=== PATIENT | male | born 1945 | race Caucasian/White ===

== ENCOUNTER 2016-10-29 08:33 | Day surgery (SDC) | payer MEDICARE ==
[~2016-10-29] VITALS: Ht 180.3 cm; Wt 104.2 kg
[~2016-10-29 08:33] MED LIST: ADVI200C9 PO; ATEN-100 PO; LOSA100T3 PO; PLAV75TA PO; SIMV20 PO; WELL150T PO
[2016-10-29 09:00] VITALS: BP 151/89; PULSE 65; RESP 18; O2SAT 92
[2016-10-29] MEDS ORDERED: SODIUM BICARBONATE 100 MEQ in D5W 1000 ML IV SCH (09:30)
[2016-10-29] MEDS ORDERED: SODIUM CHLORIDE 0.9% FLUSH 5 ML FLUSH IV FLUSH PRN (09:30)
[2016-10-29] MEDS ORDERED: DO NOT GIVE AM GLUCOPHAGE, GLUCOPHAGE XR, GLIPIZIDE, GLYBURIDE OR AVANDAMET XX PRN (09:30)
[2016-10-29] MEDS ORDERED: CLOP75TA PO (09:50)
[2016-10-29] MEDS ORDERED: IBUP200T2 PO (09:50)
[2016-10-29] MEDS ORDERED: BUPR1TAB29 PO (09:50)
[2016-10-29] MEDS ORDERED: HYZA100T6 PO (09:50)
[2016-10-29] MEDS ORDERED: ATEN25TA PO (09:50)
[2016-10-29] MEDS ORDERED: PRAV40TA2 PO (09:50)
[2016-10-29 10:14] LABS: AUTOMATED NEUTROPHIL # 3.9 TH/MM3 (1.8-7.7); BASOPHIL # 0.1 TH/MM3 (0-0.2); BASOPHIL % 0.7 % (0.0-2.0); EOSINOPHIL # 0.6 TH/MM3 (0-0.4); HEMATOCRIT 38.9 % (39.0-51.0); HEMO FLAGS DIFF FINAL; LYMPH % 28.7 % (9.0-44.0); LYMPHOCYTE # 2.2 TH/MM3 (1.0-4.8); MEAN CELL VOLUME 91.4 FL (80.0-100.0); MEAN CORPUSCULAR HEMOGLOBIN 31.5 PG (27.0-34.0); MEAN CORPUSCULAR HGB CONC 34.4 % (32.0-36.0); MONO % 10.9 % (0.0-8.0); NEUT % 51.7 % (16.0-70.0); PLATELET COUNT 183 TH/MM3 (150-450); RED BLOOD COUNT 4.26 MIL/MM3 (4.50-5.90); RED CELL DISTRIBUTION WIDTH 14.3 % (11.6-17.2); WHITE BLOOD COUNT 7.6 TH/MM3 (4.0-11.0)
[2016-10-29 10:29] LABS: BICARBONATE 30.6 MEQ/L (21.0-32.0); POTASSIUM 4.1 MEQ/L (3.5-5.1)
[2016-10-29 11:00] LABS: APTT (PATIENT) 30.4 SEC (24.3-30.1); PROTHROMBIN TIME - PATIENT 10.8 SEC (9.8-11.6)
[2016-10-29] MEDS ORDERED: HEPARIN-NS/PF INJ 500 ML ONE (11:59)
[2016-10-29] MEDS ORDERED: MIDAZOLAM HCL 2 MG/2 ML VIAL ONE (11:59)
[2016-10-29] MEDS ORDERED: IOHEXOL 350 MG/ML 100 ML BTL (for Cath Lab) OTHER ONE (13:00)
[2016-10-29] MEDS ORDERED: HEPARIN SODIUM - IV 10,000 UNITS/10 ML VIAL ONE (13:04)
[2016-10-29] MEDS ORDERED: ATROPINE SULFATE 1 MG/ML VIAL IV PUSH PRN (15:45)
[2016-10-29] MEDS ORDERED: METOCLOPRAMIDE HCL 10 MG/2 ML VIAL IVS PRN (15:45)
[2016-10-29] MEDS ORDERED: ENALAPRILAT 1.25 MG/ML VIAL IV PRN (15:45)
[2016-10-29] MEDS ORDERED: ONDANSETRON HCL 4 MG/2 ML VIAL IV PRN (15:45)
[2016-10-29] MEDS ORDERED: SODIUM CHLOR 0.9% 250 ML IV PRN (15:45)
[2016-10-29] MEDS ORDERED: LORazepam 2 MG/ML VIAL IVP PRN (15:45)
[2016-10-29] MEDS ORDERED: LABETALOL HCL 100 MG/20 ML VIAL IVP PRN (15:45)
[2016-10-29] MEDS ORDERED: POTASSIUM CHLORIDE 20 MEQ CONTROLLED RELEASE TAB PO PRN (15:45)
[2016-10-29] MEDS ORDERED: LIDOCAINE HCL 1% 50 ML VIAL INFIL PRN (15:45)
[2016-10-29] MEDS ORDERED: cloNIDine HCL 0.1 MG TAB PO PRN (15:45)
[2016-10-29] MEDS ORDERED: SODIUM NITROPRUSSIDE 50 MG/250 ML D5W IV SCH ×2 (15:45)
[2016-10-29] MEDS ORDERED: HOLD GLUCOPHAGE, GLUCOPHAGE XR, AND AVANDAMET XX PRN (15:45)
[2016-10-29] MEDS ORDERED: oxyCODONE/ACETAMINOPHEN 5 MG/325 MG TAB PO PRN ×2 (15:45)
--- NOTE | 2016-10-29 16:31 | MA ---
cc: KEMAR ROBINS DATE: 10/29/[address] Kemar Robins, DO PREOPERATIVE DIAGNOSIS Life-style limiting claudication left lower extremity. POSTOPERATIVE DIAGNOSIS Life-style limiting claudication left lower extremity. PROCEDURES 1. Vascular ultrasound access. 2. Aortogram and selective left lower extremity angiogram. 3. IVUS. SURGEON Dr. Kemar Robins. ESTIMATED BLOOD LOSS Minimal. COMPLICATIONS None. DISPOSITION To PACU. PROCEDURE The patient's right groin was prepped and draped in sterile fashion. I got access to the right common femoral artery using duplex ultrasound. I used a 21-gauge needle and exchanged over a wire for a 4-Puerto [place]ican micropuncture catheter in exchange for a 5-Puerto [place]ican sheath over braided wire. I advanced my Omni flush catheter into the abdominal aorta. I shot an AP aortogram. I pulled my catheter and I shot pelvic oblique arteriograms. I then selected out the left external iliac artery and shot a selective left lower extremity arteriogram. After this was done I exchanged for a 6-Puerto Rican 45 cm destination sheath and then advanced a 5-Puerto [place]ican catheter through my sheath into the left SFA and pulled it out from the left SFA and to the left common femoral artery to see if there was any pressure gradient. There was approximately a 20 mm systolic pressure gradient and there was about a 6 mm mean arterial pressure gradient as I moved the catheter back from the proximal left SFA into the common femoral artery. I wanted to look at the characteristics of the lesions in the left SFA and popliteal artery so I used IVUS. I used a 4-Puerto Rican IVUS system after giving 2000 units of heparin and I advanced my IVUS catheter all the way into the popliteal artery which showed that there was a substantial diameter reduction in comparison to the below-knee popliteal artery more than 50% across sectional area reduction of gradient of 75%. The same were true for the left SFA lesion, the two SFA lesions in series to the area of normal SFA. The patient had the IVUS catheter removed, at the end of the case, we removed the sheath back and applied pressure to the right groin after shooting arteriogram of the right groin. The patient tolerated the procedure well. FINDINGS My findings were that the abdominal aorta was widely patent. The bilateral common, internal and external iliac arteries were widely patent. The right common femoral profunda and superficial femoral arteries were patent. The right profunda femoral artery at its origin had a stenosis. This appeared to be mild to moderate in nature. The left common, internal and external iliac arteries were widely patent. The left common femoral and profunda femoral arteries appeared to be patent. There was extensive calcification at the origin of the SFA. There was also a separate area of calcification in the proximal SFA approximately 8 centimeters from the origin. ___ calcification seen also on the left common femoral artery as well. The rest of the left SFA appeared to be patent, minimal to moderate disease especially in the area of Orlando's canal. The left popliteal artery at the knee had a high-grade stenosis. The left below-knee popliteal artery appeared to be widely patent. The patient had three-vessel runoff through the anterior tib, peroneal and posterior tibial arteries. There was a high-grade stenosis at the takeoff of the anterior tibial artery and it should be noted there was a delay in flow distally between the anterior tibial artery and the posterior tibial artery. There was some mild disease of the takeoff of the left posterior tibial artery. The patient had a medial and lateral plantar artery and a dorsalis pedis artery in the foot. The lateral plantar artery appeared to be fairly diseased. My findings and conclusion were that the patient had two proximal flow-limiting lesions of the proximal SFA, and at least mild to moderate disease of the SFA at the area of Orlando's canal with a high-grade stenosis of the left popliteal artery with three-vessel runoff with a high-grade stenosis of the left anterior tibial artery. DO HANNAH Dunne /1:53 PM /4:10 PM
[2016-10-29] MEDS ORDERED: SODIUM CHLORIDE 0.9% FLUSH 5 ML FLUSH IV FLUSH SCH (21:00)
[2016-10-30] MEDS ORDERED: ASPIRIN EC 81 MG TABEC PO SCH (09:00)
== END 2016-10-29 19:45 | disposition home or self-care (01) ==
LOC: HDOC 08:33 → HDIC 08:34 → HDOC 19:45
PROVIDERS: ATTEND Surgery
DX: I70.212 Atherosclerosis of native arteries of extremities with intermittent claudication, left leg (principal); I10 Essential (primary) hypertension; Z95.0 Presence of cardiac pacemaker
CPT/HCPCS: 36247; 75625; 75710; 80048; 85025; 85610; 85730; C1753; C1769; C1893; J1644; J2250; J3010; J7070; Q9967

== ENCOUNTER 2016-11-05 12:08 | Inpatient (IN) | payer MEDICARE ==
[~2016-11-05] VITALS: Ht 180.3 cm; Wt 101.8 kg
[~2016-11-05 12:08] MED LIST changes: -ADVI200C9 PO; -ATEN-100 PO; +ATEN25TA PO; +BUPR1TAB29 PO; +CLOP75TA PO; +HYZA100T6 PO; -LOSA100T3 PO; -PLAV75TA PO; +PRAV40TA2 PO; -SIMV20 PO; -WELL150T PO
[2016-11-09] MEDS ORDERED: COMPTAB PO (11:18)
[2016-11-09] MEDS ORDERED: IBUP400T20 PO (11:18)
[2016-11-09] MEDS ORDERED: [UNRECOGNIZED DRUG - CODE] PO (11:18)
[2016-11-16] VITALS (7 sets, daily range): BP systolic 142–161; BP diastolic 75–88; PULSE 65–78; RESP 16–17; TEMP 97.9–98.3; O2SAT 96–98
[2016-11-16] MEDS ORDERED: SODIUM CHLORID 0.9% 500 ML IV SCH (08:00)
[2016-11-16] MEDS ORDERED: INSULIN HUMAN REGULAR 1,000 UNITS/10 ML VIAL SQ PRN (08:30)
[2016-11-16] MEDS ORDERED: METOPROLOL TARTRATE 25 MG TAB PO PRN (08:30)
[2016-11-16] MEDS ORDERED: MORPHINE SULFATE 4 MG/ML INJ IV PUSH PRN (10:00)
[2016-11-16] MEDS ORDERED: ceFAZolin 2 GM PREMIX 50 ML IV SCH (10:00)
[2016-11-16] MEDS ORDERED: DEXTROSE 50% IN WATER 50 ML VIAL(D50) IV PUSH PRN (10:00)
[2016-11-16] MEDS ORDERED: Post-op Orders (for Pharmacy) MISC OTHER ONE (10:00)
[2016-11-16] MEDS ORDERED: MAGNESIUM HYDROXIDE SUSP 30 ML CUP PO PRN (10:00)
[2016-11-16] MEDS ORDERED: GLUCAGON 1 MG/ML VIAL OTHER PRN (10:00)
[2016-11-16] MEDS ORDERED: THROMBIN (TOPICAL) 5,000 UNIT VIAL ONE (10:08)
[2016-11-16] MEDS ORDERED: HEPARIN SODIUM - SQ 10,000 UNITS/ML VIAL ONE (10:09)
[2016-11-16] MEDS ORDERED: FAMOTIDINE 20 MG/2 ML VIAL ONE (10:16)
[2016-11-16] MEDS ORDERED: DEXAMETHASONE SOD PHOS 4 MG/ML VIAL ONE (10:16)
[2016-11-16] MEDS ORDERED: ACETAMINOPHEN 1000 MG/100 ML VIAL IV ONE (10:24)
--- NOTE | 2016-11-16 10:51 | PD.VS.PN ---
Pre-operative Note Pre-operative diagnosis: life style limiting claudication. Planned procedure: left femoral endarterectomy Labs: Laboratory Tests Test 11/16/16 08:44 Blood Type O POSITIVE Antibody Screen NEGATIVE Crossmatch Leukocyte-Reduced Red Blood Cells Blood Bank Comment Post-operative destination: [facility] Operative site marked: Yes Consent: Informed consent has been obtained from Navid Singleton. I have explained the procedure in detail and discussed the risks, benefits, and potential complications. All questions have been answered. Kemar Estrada DO Nov 16, 2016 10:51
[2016-11-16] MEDS ORDERED: BUPIVACAINE/EPINEPHRINE 0.25% PF 30 ML VIAL ONE (10:53)
[2016-11-16] MEDS: HEPARIN SODIUM - IV 10,000 UNITS/10 ML VIAL ONE ×2 (11:46→13:10)
[2016-11-16] MEDS ORDERED: PROPOFOL 200 MG/20 ML AMP IV ONE (12:00)
[2016-11-16] MEDS: INSULIN NovoLIN REGULAR SUPPLEMENTAL SCALE SQ SCH ×3 (12:00→23:41)
[2016-11-16] MEDS ORDERED: NORMOSOL R INJ 2,000 ML IV ONE (12:00)
[2016-11-16] MEDS ORDERED: PHENYLEPH/NS 1000 MCG/10 ML SYR IV ONE (12:00)
[2016-11-16] MEDS ORDERED: LACTATED RINGER'S 1000 ML INJ 1,000 ML IV ONE (12:00)
[2016-11-16] MEDS ORDERED: DO NOT ADM ANY ANTICOAGULANT DRUGS XX PRN (15:17)
[2016-11-16] MEDS ORDERED: fentaNYL CITRATE 250 MCG/5 ML AMP ONE (15:32)
--- NOTE | 2016-11-16 15:38 | MP ---
cc: MARK ROBINS DATE OF SURGERY: 11/16/2016 PREOPERATIVE DIAGNOSIS Lifestyle limiting claudication. POSTOPERATIVE DIAGNOSIS Lifestyle limiting claudication. PROCEDURE Left femoral endarterectomy with bovine patch. SURGEON Sean BRANCHER Brad IV FLUIDS 3.3 liters crystalloid. ESTIMATED BLOOD LOSS 450 cc. URINE OUTPUT No urine output through catheter. COMPLICATIONS None. DISPOSITION To PACU. DETAILS OF PROCEDURE The patient's left groin was prepped and draped in the sterile fashion. I did prep him from the xiphoid process to the toes bilaterally. We did give him perioperative IV antibiotics. The patient had a condom catheter placed before the procedure. His urethra was not cannulated because he had a previous urological procedure which was a contraindication to cannulation with a Hagan. An incision was made over the left groin in the medial third vertically from just above the inguinal ligament inferiorly. I used a scalpel and electrocautery. I dissected down with Metzenbaum scissors, isolated out the common, profunda and superficial femoral arteries. I removed any periadventitial tissue with sharp dissection. I used 2-0 ties and vessel loops for control of the common, profunda and superficial femoral artery and then side branches of the profunda and common as needed. We heparinized the patient to an ACT of approximately 280. We used pediatric profunda clamps to control the SFA, common femoral and profunda femoral arteries. I made an arteriotomy with an 11 blade and Philip scissors. After I performed my arteriotomy I opened up the vessel and used a Hatteras elevator to remove any plaque off the back wall of the vessel. I irrigated the back wall of the vessel. It should be noted that my incision extended from the common femoral into the proximal SFA. Once I felt like the area was clear as well as the profunda femoral artery of any debris, I sewed on a 9 x 2 bovine patch. It should be noted that the patch was longitudinally divided so was approximately 1.5 cm in diameter. I sewed it in with a 5-0 and BV-1. At the end of the procedure I back bled and forward blood to remove any additional debris. It should be noted there was a good signal distally and there was no surgical repair sutures needed. I then made a second counterincision inferiorly, used a scalpel and electrocautery and dissected out through the subcutaneous tissue to the more distal superficial femoral artery. I performed a second endarterectomy using two pediatric profunda clamps proximally and distally with an 11 blade and Philip as well as a Hatteras elevator to remove the plaque. I then used a second 9 x 2 cm patch. It should be noted that these three areas were high-grade stenoses with friable plaque. At the end of the procedure there were excellent signals in the dorsalis pedis and posterior tibial. For the second patch I had to use approximately three 6-0 Prolene in order to control bleeding. I did use Surgicel to help out with hemostasis. I closed in layers with interrupted 2-0 and 3-0 Vicryl absorbable sutures and two 4-0 Monocryl with a Prevena VAC over this for the skin. The patient tolerated the procedure well. DO KAMERON Dunne /2:36 PM /3:12 PM
[2016-11-16] MEDS: SODIUM CHLOR 0.9% 1000 ML INJ 1,000 ML IV SCH (16:15)
--- NOTE | 2016-11-16 16:24 | HHI.PR ---
Immediate Post Op Note Procedure Date: Nov 16, 2016 Pre Op Diagnosis: (1) Claudication in peripheral vascular disease Post Op Diagnosis: (1) Claudication in peripheral vascular disease Surgeon: Kemar Estrada Medical Lab Specialist(s): Brad Valdes Procedure: Left femoral endarterectomy Findings: Calcified plaque. Additional Information: NA Complications: None Specimen(s) removed: Plaque Estimated blood loss: 450cc Anesthesia: General, Local Drains: None Fluids: 2300 cc IVF Tourniquet time (min at mmHg) NA Patient to: PACU Patient Condition: Good Implant/Devices: Other Date/Time of Procedure: Other Kemar Estrada DO Nov 16, 2016 16:24
[2016-11-16] MEDS: ceFAZolin 2 GM PREMIX 50 ML IV SCH (20:19)
[2016-11-16] MEDS: DOCUSATE CALCIUM 240 MG CAP PO SCH (21:07)
[2016-11-16] MEDS: ACETAMINOPHEN 325 MG TAB PO PRN (23:28)
[2016-11-17] VITALS (26 sets, daily range): BP systolic 131–159; BP diastolic 63–77; PULSE 64–91; RESP 16–20; TEMP 98.1–98.7; O2SAT 94–98
[2016-11-17] MEDS: SODIUM CHLOR 0.9% 1000 ML INJ 1,000 ML IV SCH ×2 (03:26→05:50)
[2016-11-17] MEDS: ceFAZolin 2 GM PREMIX 50 ML IV SCH ×2 (03:36→11:53)
[2016-11-17] MEDS: ACETAMINOPHEN 325 MG TAB PO PRN (04:16)
[2016-11-17 05:31] LABS: ALKALINE PHOSPHATASE 59 U/L (45-117); ALT (GPT) 38 U/L (12-78); ANION GAP 7 MEQ/L (5-15); AST (GOT) 19 U/L (15-37); BICARBONATE 28.8 MEQ/L (21.0-32.0); BLOOD UREA NITROGEN 8 MG/DL (7-18); CHLORIDE 104 MEQ/L (98-107); GLOMERULAR FILTRATION RATE 86 ML/MIN (>89); POTASSIUM 3.8 MEQ/L (3.5-5.1); SODIUM (NA) 140 MEQ/L (136-145); TOTAL BILIRUBIN ADULT 0.3 MG/DL (0.2-1.0)
[2016-11-17] MEDS: INSULIN NovoLIN REGULAR SUPPLEMENTAL SCALE SQ SCH ×4 (06:00→23:58)
[2016-11-17] MEDS: LACTATED RINGER'S 1000 ML IV SCH (08:00)
[2016-11-17] MEDS: ASPIRIN EC 325 MG TABEC PO SCH (08:42)
--- NOTE | 2016-11-17 09:39 | PD.VS.PN ---
Objective Vitals/I&O Date Time Temp Pulse Resp B/P Pulse Ox O2 Delivery O2 Flow Rate FiO2 11/17/16 08:00 75 11/17/16 07:27 97 21 11/17/16 07:00 65 11/17/16 07:00 98.7 78 20 157/74 95 11/17/16 06:00 65 11/17/16 05:00 64 11/17/16 04:00 66 11/17/16 03:30 98.1 65 16 131/63 96 11/17/16 03:00 65 11/17/16 02:00 66 11/17/16 01:00 70 11/17/16 00:00 98.3 77 16 141/70 96 11/17/16 00:00 77 11/16/16 23:00 76 11/16/16 22:00 68 11/16/16 21:00 73 11/16/16 20:00 72 11/16/16 20:00 98.3 70 16 142/75 97 11/16/16 19:00 78 11/16/16 17:38 97.9 65 17 161/80 96 11/16/16 16:30 98.5 64 15 147/87 99 Room Air 11/16/16 16:15 70 15 150/95 99 Nasal Cannula 3 11/16/16 16:00 76 16 141/81 99 Nasal Cannula 3 11/16/16 15:45 64 15 155/94 99 Nasal Cannula 3 11/16/16 15:30 64 15 155/98 99 Nasal Cannula 3 11/16/16 15:20 98.4 64 15 161/94 98 Nasal Cannula 3 Physical Exam left foot warm with triphasic pedal signals. Laboratory Laboratory Tests Test 11/17/16 04:36 Sodium Level 140 Potassium Level 3.8 Chloride Level 104 Carbon Dioxide Level 28.8 Anion Gap 7 Blood Urea Nitrogen 8 Creatinine 0.88 Estimat Glomerular Filtration 86 Rate Random Glucose 111 Calcium Level 8.5 Total Bilirubin 0.3 Aspartate Amino Transf 19 (AST/SGOT) Alanine Aminotransferase 38 (ALT/SGPT) Alkaline Phosphatase 59 Total Protein 6.3 Albumin 3.0 Assessment and Plan Assessment: (1) Claudication in peripheral vascular disease Status: Acute Plan Hx of PAD status post left fem endarterectomy. Patient without complaints. Plan for OOB to chair today. Diet advanced and home meds started. Kemar Estrada DO Nov 17, 2016 09:39
[2016-11-17] MEDS: DOCUSATE CALCIUM 240 MG CAP PO SCH (20:59)
[2016-11-17] MEDS: IBUPROFEN 400 MG TAB PO SCH (20:59)
[2016-11-18] VITALS (26 sets, daily range): BP systolic 134–160; BP diastolic 58–72; PULSE 68–90; RESP 15–20; TEMP 98.5–100.2; O2SAT 94–97
[2016-11-18] MEDS: INSULIN NovoLIN REGULAR SUPPLEMENTAL SCALE SQ SCH ×3 (06:00→17:58)
[2016-11-18] MEDS: LACTATED RINGER'S 1000 ML IV SCH (07:45)
[2016-11-18] MEDS ORDERED: NON-FORMULARY DRUG (Losartan-Hydrochlorothiazide (Hyzaar) 1 TAB) PO SCH (09:00)
[2016-11-18] MEDS: IBUPROFEN 400 MG TAB PO SCH ×2 (09:00→21:12)
[2016-11-18] MEDS: MULTIVITAMIN HEMATINIC THERAPEUTIC TAB PO SCH (09:40)
[2016-11-18] MEDS: ATENOLOL 25 MG TAB PO SCH (09:40)
[2016-11-18] MEDS: buPROPion HCL 150 MG SUSTAINED RELEASE TAB PO SCH (09:40)
[2016-11-18] MEDS: PRAVASTATIN SOD 40 MG TAB PO SCH (09:41)
[2016-11-18] MEDS: HYDROCHLOROTHIAZIDE 12.5 MG CAP PO SCH (09:41)
[2016-11-18] MEDS: CLOPIDOGREL 75 MG TAB PO SCH (09:42)
[2016-11-18] MEDS: LACTOBACILLUS ACIDOPHILUS TAB PO SCH (09:42)
[2016-11-18] MEDS: ASPIRIN EC 325 MG TABEC PO SCH (09:42)
[2016-11-18] MEDS: LOSARTAN 50 MG TAB PO SCH (09:42)
--- NOTE | 2016-11-18 17:32 | PD.VS.PN ---
Subjective Subjective/Hospital Course ambulating with minimal pain, zamzam po and urinating. Objective Vitals/I&O Date Time Temp Pulse Resp B/P Pulse Ox O2 Delivery O2 Flow Rate FiO2 11/18/16 17:00 79 11/18/16 16:00 78 11/18/16 15:51 98.8 79 16 138/58 97 11/18/16 15:00 79 11/18/16 14:00 78 11/18/16 13:00 78 11/18/16 12:00 98.9 79 16 160/72 97 11/18/16 12:00 75 11/18/16 11:00 73 11/18/16 10:00 74 11/18/16 09:00 78 11/18/16 08:00 78 11/18/16 08:00 99.0 79 16 146/67 97 11/18/16 07:00 78 11/18/16 06:00 78 11/18/16 05:00 68 11/18/16 04:00 98.5 79 16 134/60 97 11/18/16 04:00 79 11/18/16 03:00 77 11/18/16 02:00 90 11/18/16 01:00 72 11/18/16 00:00 98.8 75 16 148/70 94 11/18/16 00:00 75 11/17/16 23:00 85 11/17/16 22:00 74 11/17/16 21:00 80 11/17/16 20:00 79 11/17/16 20:00 98.7 77 16 144/69 94 11/17/16 19:00 79 11/17/16 18:00 87 11/18/16 11/18/16 11/18/16 07:00 15:00 23:00 Intake Total 240 ml 720 ml Output Total 1350 ml 1725 ml Balance -1110 ml -1005 ml Physical Exam left gr dressing in place. left foot warm with triphasic signals. Assessment and Plan Assessment: (1) Claudication in peripheral vascular disease Status: Acute Plan Hx of PAD status post left fem endarterectomy. Patient without complaints. Plan for discharge 11/19 if continues to progress. Kemar Estrada DO Nov 18, 2016 17:32 Kemar Estrada DO Nov 18, 2016 17:32
[2016-11-18] MEDS: DOCUSATE CALCIUM 240 MG CAP PO SCH (21:00)
[2016-11-19] VITALS (11 sets, daily range): BP systolic 116–179; BP diastolic 54–79; PULSE 64–78; RESP 20; TEMP 98.2–98.8; O2SAT 96
[2016-11-19] MEDS: INSULIN NovoLIN REGULAR SUPPLEMENTAL SCALE SQ SCH ×2 (00:46→07:00)
[2016-11-19] MEDS: LACTATED RINGER'S 1000 ML IV SCH (07:49)
[2016-11-19] MEDS: IBUPROFEN 400 MG TAB PO SCH (09:00)
[2016-11-19] MEDS: buPROPion HCL 150 MG SUSTAINED RELEASE TAB PO SCH (09:00)
[2016-11-19] MEDS: ASPIRIN EC 325 MG TABEC PO SCH (09:41)
[2016-11-19] MEDS: MULTIVITAMIN HEMATINIC THERAPEUTIC TAB PO SCH (09:41)
[2016-11-19] MEDS: PRAVASTATIN SOD 40 MG TAB PO SCH (09:41)
[2016-11-19] MEDS: LACTOBACILLUS ACIDOPHILUS TAB PO SCH (09:42)
[2016-11-19] MEDS: HYDROCHLOROTHIAZIDE 12.5 MG CAP PO SCH (09:42)
[2016-11-19] MEDS: ATENOLOL 25 MG TAB PO SCH (09:42)
[2016-11-19] MEDS: LOSARTAN 50 MG TAB PO SCH (09:43)
[2016-11-19] MEDS: CLOPIDOGREL 75 MG TAB PO SCH (09:43)
--- NOTE | 2016-11-19 10:51 | PD.VS.DC ---
Discharge Summary Admission Date: Nov 16, 2016 at 07:33 Discharge Date: Nov 19, 2016 Admission Diagnosis: (1) Claudication in peripheral vascular disease Discharge Diagnosis: (1) Claudication in peripheral vascular disease Status: Acute (2) PAD (peripheral artery disease) Status: Chronic Brief History from admission Pt has a HX of life style limiting claudication, PAD Left femoral endarterectomy was done on 11/16/16 Procedure(s): Left femoral endarterectomy was done on 11/16/16 Significant Findings GENERAL: A&OX3, GCS15, NAD SKIN: Warm and dry. Provena wound vac removed, Incision intact to left groin region with no redness, swelling or drainage. NECK: Supple, trachea midline. No JVD or lymphadenopathy. CARDIOVASCULAR: + S1,S2 RESPIRATORY: Breath sounds equal bilaterally. No accessory muscle use. GASTROINTESTINAL: Abdomen soft, non-tender, nondistended. MUSCULOSKELETAL: No cyanosis, or edema. Bilat PT/DP pulses heard with strong triphasic signals Laboratory Tests Test 11/17/16 04:36 Estimat Glomerular Filtration 86 ML/MIN (>89) Rate Random Glucose 111 MG/DL (74-106) Total Protein 6.3 GM/DL (6.4-8.2) Albumin 3.0 GM/DL (3.4-5.0) Hospital Course: Pt has a HX of life style limiting claudication, PAD Left femoral endarterectomy was done on 11/16/16 Pt has done well post, has ambulated without difficulty since procedure Pt appears well and has no complaints Will F/U in our OPC on 11/25/16 at 1015 Allergies Coded Allergies Type Severity Reaction Last Updated Verified No Known Allergies 11/16/16 Yes 11/17///////// 06:00 18:00 06:00 18:00 06:00 18:00 Intake Total 1586 ml 1490 ml 240 ml 720 ml 480 ml Output Total 1950 ml 1300 ml 1350 ml 1725 ml 4 ml Balance -364 ml 190 ml -1110 ml -1005 ml 476 ml Intake Oral 720 ml 1440 ml 240 ml 720 ml 480 ml IV Total 866 ml 50 ml Output Urine Total 1950 ml 1300 ml 1350 ml 1725 ml 4 ml # Bowel Movements 0 1 0 1 1 Laboratory Tests Test 11/17/16 04:36 Sodium Level 140 MEQ/L Potassium Level 3.8 MEQ/L Chloride Level 104 MEQ/L Carbon Dioxide Level 28.8 MEQ/L Anion Gap 7 MEQ/L Blood Urea Nitrogen 8 MG/DL Creatinine 0.88 MG/DL Estimat Glomerular Filtration 86 ML/MIN Rate Random Glucose 111 MG/DL Calcium Level 8.5 MG/DL Total Bilirubin 0.3 MG/DL Aspartate Amino Transf 19 U/L (AST/SGOT) Alanine Aminotransferase 38 U/L (ALT/SGPT) Alkaline Phosphatase 59 U/L Total Protein 6.3 GM/DL Albumin 3.0 GM/DL Procedure Category Date Status Time Bupivacaine-Epi Pf MED 11/16/16 Complete 0.25% Inj (Marcaine-E 10:53 Am Admit Pre Op Care [facility] 11/16/16 Complete Cefazolin 2 Gm Premix MED 11/16/16 Complete (Ancef 2 Gm Premix 20:00 Fentanyl Inj MED 11/16/16 Complete (Fentanyl Inj) 15:32 [facility] 11/16/16 Complete Information 15:17 Diet Clear Liquid DIET 11/16/16 Complete Dinner Diet Heart Healthy DIET 11/17/16 Transmitted Breakfast Class Iv Pacu Ea 30 [facility] 11/16/16 Complete MIN General/Pacu [facility] 11/16/16 Complete Post Anesthesia Oxygen [facility] 11/16/16 Complete Bedside Glucose [facility] 11/16/16 Complete Atenolol (Tenormin) MED 11/18/16 In Process 09:00 Bupropion Sr MED 11/18/16 In Process (Wellbutrin Sr) 09:00 Clopidogrel (Plavix) MED 11/18/16 In Process 09:00 Ibuprofen (Motrin) MED 11/17/16 In Process 21:00 Multivitamin MED 11/18/16 In Process Hematinic Therap 09:00 Pravastatin MED 11/18/16 In Process (Pravachol) 09:00 Lactobacillus MED 11/18/16 In Process Acidophilus (Lactinex) 09:00 Losartan (Cozaar) MED 11/18/16 In Process 09:00 Hydrochlorothiazide MED 11/18/16 In Process (Microzide) 09:00 Consult Pt Eval & Tx PT 11/18/16 Logged OOB 10:28 Propofol 200 Mg/20 Ml MED 11/16/16 Complete Inj (Diprivan 200 12:00 Phenyleph/Ns 1000 MED 11/16/16 Complete Mcg/10ml Syr (Neosynep 12:00 Lactated Ringer's MED 11/16/16 Complete 1000 Ml Inj (Lr 1000 M 12:00 Normosol R Inj MED 11/16/16 Complete (Normosol R Inj) 12:00 Wound Care [place] 11/19/16 Transmitted 09:51 Attending Discharge DISCHARGE 11/19/16 Transmitted Order Vital Signs Date Time Temp Pulse Resp B/P Pulse Ox O2 Delivery O2 Flow Rate FiO2 11/19/16 09:00 74 11/19/16 08:00 98.8 78 20 179/79 96 11/19/16 08:00 78 11/19/16 07:00 67 11/19/16 05:00 68 11/19/16 04:00 98.2 72 20 116/54 96 11/19/16 04:00 65 11/19/16 03:00 65 11/19/16 02:00 64 11/19/16 01:00 66 11/19/16 00:00 98.2 72 20 116/54 96 11/19/16 00:00 71 11/18/16 23:00 72 11/18/16 22:00 73 11/18/16 21:00 75 11/18/16 20:00 100.2 79 20 146/62 96 11/18/16 20:00 85 11/18/16 19:00 85 11/18/16 18:00 85 11/18/16 17:32 83 15 145/63 11/18/16 17:00 79 11/18/16 16:00 78 11/18/16 15:51 98.8 79 16 138/58 97 11/18/16 15:00 79 11/18/16 14:00 78 11/18/16 13:00 78 11/18/16 12:00 98.9 79 16 160/72 97 11/18/16 12:00 75 11/18/16 11:00 73 11/18/16 10:00 74 11/18/16 09:00 78 11/18/16 08:00 78 11/18/16 08:00 99.0 79 16 146/67 97 11/18/16 07:00 78 11/18/16 06:00 78 11/18/16 05:00 68 11/18/16 04:00 98.5 79 16 134/60 97 11/18/16 04:00 79 11/18/16 03:00 77 11/18/16 02:00 90 11/18/16 01:00 72 11/18/16 00:00 98.8 75 16 148/70 94 11/18/16 00:00 75 11/17/16 23:00 85 11/17/16 22:00 74 11/17/16 21:00 80 11/17/16 20:00 79 11/17/16 20:00 98.7 77 16 144/69 94 11/17/16 19:00 79 11/17/16 18:00 87 11/17/16 17:00 74 11/17/16 16:00 75 11/17/16 15:00 98.4 73 20 159/77 98 11/17/16 15:00 72 11/17/16 14:00 79 11/17/16 13:00 70 11/17/16 12:00 82 11/17/16 11:00 71 11/17/16 11:00 98.7 77 20 144/67 97 11/17/16 10:00 91 11/17/16 09:00 75 11/17/16 08:00 75 11/17/16 07:27 97 21 11/17/16 07:00 65 11/17/16 07:00 98.7 78 20 157/74 95 11/17/16 06:00 65 11/17/16 05:00 64 11/17/16 04:00 66 11/17/16 03:30 98.1 65 16 131/63 96 11/17/16 03:00 65 11/17/16 02:00 66 11/17/16 01:00 70 11/17/16 00:00 98.3 77 16 141/70 96 11/17/16 00:00 77 11/16/16 23:00 76 11/16/16 22:00 68 11/16/16 21:00 73 11/16/16 20:00 72 11/16/16 20:00 98.3 70 16 142/75 97 11/16/16 19:00 78 11/16/16 17:38 97.9 65 17 161/80 96 11/16/16 16:30 98.5 64 15 147/87 99 Room Air 11/16/16 16:15 70 15 150/95 99 Nasal Cannula 3 11/16/16 16:00 76 16 141/81 99 Nasal Cannula 3 11/16/16 15:45 64 15 155/94 99 Nasal Cannula 3 11/16/16 15:30 64 15 155/98 99 Nasal Cannula 3 11/16/16 15:20 98.4 64 15 161/94 98 Nasal Cannula 3 Discharge Condition: Good Discharge Disposition: Discharge Home Discharge Instructions: Call the office with ANY questions or concerns RTC on 11/25/16 at 1015 Keep Provena wound vac on left groin till f/u appointment Any questions or concerns: Call [facility] at [facility] [phone] Merlene Adkins Nov 19, 2016 10:51
== END 2016-11-19 11:47 | disposition home or self-care (01) | DRG 254 ==
LOC: HSDI 11-16 07:33 → EDSTATUS 11-16 10:00 → HCPC 11-16 17:00
PROVIDERS: ADMIT Surgery; ATTEND Surgery
PROC: 04UL0KZ Supplement Left Femoral Artery with Nonautologous Tissue Substitute, Open Approach (ICD-10-PCS; 2016-11-16)
PROC: 04CL0ZZ Extirpation of Matter from Left Femoral Artery, Open Approach (ICD-10-PCS; principal; 2016-11-16 10:28)
DX: I73.9 Peripheral vascular disease, unspecified (principal); I10 Essential (primary) hypertension; Z86.73 Personal history of transient ischemic attack (TIA), and cerebral infarction without residual deficits; Z85.46 Personal history of malignant neoplasm of prostate; I25.2 Old myocardial infarction; Z87.891 Personal history of nicotine dependence; Z95.5 Presence of coronary angioplasty implant and graft; Z95.0 Presence of cardiac pacemaker
CPT/HCPCS: 76937; 80053; 82948; 86850; 86900; 86901; 86920; 94150; J0131; J0690; J1100; J1644; J2370; J3010; J7030; J7120

== ENCOUNTER → 2016-11-09 | Outpatient (CLI) | payer MEDICARE ==
[~2016-11-09] MED LIST changes: +COMPTAB PO; +IBUP200T2 PO; +IBUP400T20 PO; +[UNRECOGNIZED DRUG - CODE] PO
[2016-11-09 10:35] LABS: AUTOMATED NEUTROPHIL # 5.3 TH/MM3 (1.8-7.7); BASOPHIL # 0.1 TH/MM3 (0-0.2); BASOPHIL % 0.5 % (0.0-2.0); EOSINOPHIL # 0.7 TH/MM3 (0-0.4); EOSINOPHIL % 6.7 % (0.0-4.0); HEMATOCRIT 40.2 % (39.0-51.0); HEMO FLAGS DIFF FINAL; LYMPH % 29.4 % (9.0-44.0); LYMPHOCYTE # 2.9 TH/MM3 (1.0-4.8); MEAN CELL VOLUME 90.8 FL (80.0-100.0); MEAN CORPUSCULAR HEMOGLOBIN 30.9 PG (27.0-34.0); MEAN CORPUSCULAR HGB CONC 34.1 % (32.0-36.0); MONO % 9.6 % (0.0-8.0); NEUT % 53.8 % (16.0-70.0); PLATELET COUNT 230 TH/MM3 (150-450); RED BLOOD COUNT 4.43 MIL/MM3 (4.50-5.90); RED CELL DISTRIBUTION WIDTH 14.6 % (11.6-17.2); WHITE BLOOD COUNT 9.9 TH/MM3 (4.0-11.0)
[2016-11-09 10:39] LABS: BLOOD, URINE NEG (NEG); COMMENT (UR) CULT NOT INDICATED; CULTURE IF INDICATED CULT NOT INDICATED; GLUCOSE,URINE NEG (NEG); KETONE, URINE NEG (NEG); MUCUS URINE FEW /lpf (OCC); NITRITE,URINE NEG (NEG); PH, URINE 6.5 (5.0-8.5); SQUAMOUS EPITHELIAL CELL URINE 1 /hpf (0-5); URINE COLOR YELLOW (YELLW/STRAW)
[2016-11-09 10:47] LABS: PROTHROMBIN TIME - PATIENT 10.9 SEC (9.8-11.6)
[2016-11-09 11:02] LABS: ALKALINE PHOSPHATASE 75 U/L (45-117); ALT (GPT) 55 U/L (12-78); ANION GAP 8 MEQ/L (5-15); AST (GOT) 24 U/L (15-37); BICARBONATE 29.1 MEQ/L (21.0-32.0); BLOOD UREA NITROGEN 16 MG/DL (7-18); CHLORIDE 100 MEQ/L (98-107); GLOMERULAR FILTRATION RATE 74 ML/MIN (>89); GLUCOSE,FASTING 101 MG/DL (74-99); POTASSIUM 4.4 MEQ/L (3.5-5.1); SODIUM (NA) 137 MEQ/L (136-145); TOTAL BILIRUBIN ADULT 0.8 MG/DL (0.2-1.0)
--- NOTE | 2016-11-09 12:17 | RADRPT ---
EXAM DATE/TIME: 11/09/2016 11:45 [place] COMPARISON: No previous studies available for comparison. INDICATIONS : Evaluate for pneumonia, pneumothorax, or communicable disease. Pre op for heart bypass. MEDICAL HISTORY : None. SURGICAL HISTORY : Pacemaker. ENCOUNTER: Initial ACUITY: 1 day PAIN SCORE: 0/10 LOCATION: Bilateral chest FINDINGS: PA and lateral views of the chest demonstrate the lungs to be symmetrically aerated without evidence of mass, infiltrate or effusion. The cardiomediastinal contours are unremarkable. Osseous structure s are intact. The there is a left subclavian AV sequential transvenous pacer. There are atherosclerot ic calcifications in the aorta. CONCLUSION: No acute disease. Scar Bynum MD on November 09, 2016 at 12:13 Board Certified Radiologist. This report was verified electronically.
--- NOTE | 2016-11-10 08:16 | EKG ---
Date Performed: 11/09/2016 Time Performed: 10:36:37 PTAGE: 71 years EKG: ELECTRONIC ATRIAL PACEMAKER ELECTRONIC VENTRICULAR PACEMAKER ABNORMAL RHYTHM ECG NO PREVIOUS TRACING DOCTOR: Jimmy Will Interpretating Date/Time 11/10/2016 08:13:59
== END ==
LOC: CPRE 09:50
PROVIDERS: ATTEND Surgery
DX: Z01.812 Encounter for preprocedural laboratory examination (principal); Z01.810 Encounter for preprocedural cardiovascular examination; Z01.811 Encounter for preprocedural respiratory examination; I73.9 Peripheral vascular disease, unspecified; Z95.0 Presence of cardiac pacemaker; I49.9 Cardiac arrhythmia, unspecified
CPT/HCPCS: 36415; 71020; 80053; 81001; 85025; 85610; 93005